=== PATIENT | male | born 1980 | race Caucasian/White ===

== ENCOUNTER 2021-09-05 09:29 | Emergency (ER) | payer OTHER, SELFPAY ==
--- NOTE | ~2021-09-05 | CT_ITS ---
EXAMINATION: CT ABDOMEN AND PELVIS WITHOUT CONTRAST CLINICAL INFORMATION: Pelvic pain, back pain COMPARISON: None TECHNIQUE: Multidetector volumetric imaging was performed from the superior aspect of the liver through the pubic symphysis. Sagittal and coronal reformatted images were obtained on the technologist's workstation. This CT examination was performed using dose optimization techniques as appropriate, variously including the following: *Automated exposure control *Adjustment of mA and/or kV according to patient size (this includes techniques or standardized protocols for targeted exams where dose is matched to indication/reason for exam; i.e. extremities or head) *Use of iterative reconstruction technique DLP: 710 mGy-cm FINDINGS: LUNG BASES: There is a 6 x 4 mm nodular opacity within the left upper lobe/lingula (image 7, series 4). Lung bases are otherwise clear. There are no pleural fluid collections. Imaged heart is unremarkable. LIVER, GALLBLADDER, AND BILIARY TREE: The liver is normal in size, though diffusely low in attenuation with compatible steatosis. There is regional sparing adjacent to the gallbladder fossa. No focal hepatic lesions are seen. There is no intra or extrahepatic duct dilation. The gallbladder is unremarkable with no evidence of radiopaque gallstones, gallbladder wall thickening, or obvious pericholecystic inflammatory changes. PANCREAS: Unremarkable. SPLEEN: Unremarkable. ADRENAL GLANDS: Unremarkable. KIDNEYS AND URETERS: The kidneys are normal in size, shape, and attenuation. No hydronephrosis, hydroureter, or calculi seen. No perinephric stranding. BLADDER: The bladder is essentially completely decompressed. There is a possible linear soft tissue structure extending 5 cm cranially from the anterior margin of the bladder which is best appreciated on sagittal images. The finding is indeterminate and could represent a collapsed portion of the bladder or a small urachal remnant. This could be further evaluated with ultrasound and full bladder. GASTROINTESTINAL TRACT: Distal esophagus and stomach are unremarkable. The small and large bowel are normal in course and caliber. There are no bowel wall inflammatory changes. There is a normal appendix. ABDOMINAL WALL: There is a fat-containing periumbilical hernia which measures 1.2 cm at the neck LYMPH NODES: Normal. VASCULAR: Unremarkable. PELVIC VISCERA: The prostate and seminal vesicles are unremarkable. The left testicle is located in a relatively cranial position just beyond the superficial inguinal ring. Uncertain if less than fully distended or secondary to an exaggerated cremasteric reflex. OSSEOUS STRUCTURES: There is 4 to 5 mm retrolisthesis of L5 on S1 degenerative disc change and endplate degeneration. There are mild degenerative changes of the sacroiliac joints with osteophyte formation along the anterior margin of the left sacroiliac joint (image 557, series 4) CT/CT abdomen pelvis wo con IMPRESSION: There is a questionable linear soft tissue structure extending cranially from the anterior margin of the bladder, however this could be secondary to underdistention of the bladder. Further evaluation with ultrasound with a full bladder could be of benefit to exclude a urethral remnant. Relatively cranial position of the left testis. Uncertain if this represents a partially undescended testis versus exaggerated cremasteric reflex. Would correlate with scrotal exam findings. Degenerative disc disease L5-S1 with grade 1 retrolisthesis L5 on S1. 6 x 4 mm left lower upper lobe pulmonary nodule (average diameter 5 mm). According to the UPDATED 2017 Fleischner Society recommendations, the advised follow-up imaging for solid nodules < 6 mm is: LOW RISK PATIENT: No routine follow-up. HIGH RISK PATIENT: Optional CT at 12 months. Hepatic steatosis. Fleischner guidelines were followed.
--- NOTE | ~2021-09-05 | US_ITS ---
EXAMINATION: US SCROTUM CLINICAL INFORMATION: Bilateral testicular pain. COMPARISON: None TECHNIQUE: A sonogram of the scrotum was performed assessing cuevas-scale appearance and color Doppler flow. Spectral Doppler analysis of the arterial and venous flow were performed in the testes bilaterally. FINDINGS: RIGHT: Right testicle measures 3.7 x 2.1 x 3.8 cm, volume 15.5 mL. No focal testicular parenchymal lesions are visualized. Spectral Doppler analysis of the arterial and venous flow is normal in the right testis. Right epididymal head is normal in size. No right hydrocele or varicocele is seen. Right epididymal Doppler flow is normal. LEFT: Left testicle measures 3.3 x 2.3 x 3.1 cm, volume 12.6 mL. No focal testicular parenchymal lesions are visualized. Spectral Doppler analysis of the arterial and venous flow is normal in the left testis. Left epididymal head is normal in size. No left varicocele is seen. Small left-sided hydrocele. Left epididymal Doppler flow is normal. US/US scrotum doppler IMPRESSION: 1. Bilateral testicular vascular flow visualized. 2. Small left-sided hydrocele.
--- NOTE | ~2021-09-05 | US_ITS ---
EXAMINATION: US SCROTUM CLINICAL INFORMATION: Bilateral testicular pain. COMPARISON: None TECHNIQUE: A sonogram of the scrotum was performed assessing cuevas-scale appearance and color Doppler flow. Spectral Doppler analysis of the arterial and venous flow were performed in the testes bilaterally. FINDINGS: RIGHT: Right testicle measures 3.7 x 2.1 x 3.8 cm, volume 15.5 mL. No focal testicular parenchymal lesions are visualized. Spectral Doppler analysis of the arterial and venous flow is normal in the right testis. Right epididymal head is normal in size. No right hydrocele or varicocele is seen. Right epididymal Doppler flow is normal. LEFT: Left testicle measures 3.3 x 2.3 x 3.1 cm, volume 12.6 mL. No focal testicular parenchymal lesions are visualized. Spectral Doppler analysis of the arterial and venous flow is normal in the left testis. Left epididymal head is normal in size. No left varicocele is seen. Small left-sided hydrocele. Left epididymal Doppler flow is normal. US/US scrotum IMPRESSION: 1. Bilateral testicular vascular flow visualized. 2. Small left-sided hydrocele.
[2021-09-05 09:48] VITALS: BP 144/83; PULSE 96; RESP 18; TEMP 36.6; O2SAT 99; BMI 26.6
--- NOTE | 2021-09-05 10:04 | ED.MALEGU ---
HPI - Male Genitourinary General Chief complaint: Urogenital-Male Stated complaint: groin pain,backpain Time Seen by Provider: 09/05/21 10:04 Source: patient Mode of arrival: ambulatory Limitations: no limitations History of Present Illness Complaint: other (pelvic pain, groin pain, back pain) Onset (ago): day(s) (3) Duration: intermittent Location: right inguinal region and abdomen (pelvic area, low back) Severity: moderate Quality: aching and dull Exacerbating factors: movement Context: other (unsure did have intercourse with ) Associated symptoms: Reports nausea/vomiting and other (malaise not feeling well) Related Data Allergies Allergy/AdvReac Type Severity Reaction Status Date / Time seafood Allergy Vomiting Verified 09/05/21 09:48 Review of Systems Review of Systems: Constitutional : No Weight loss, No Fever, No Chills, No Fatigue, No Malaise ENT/Mouth : No sore throat, No Rhinorrhea Eyes: No Eye Pain, No Swelling, No Redness Cardiovascular : No Chest Pain, No SOB, No Dyspnea on Exertion, No Orthopnea, No Edema, No Palpitations Respiratory : No Cough, No Sputum, No Wheezing Gastrointestinal : pos Nausea, No Vomiting, No Diarrhea, No Constipation, pos abdominal Pain, No Hematochezia, No Melena Genitourinary : No Dysuria, No Urinary Frequency, No Hematuria, pos pelvic pain Musculoskeletal : No joint pain, No Myalgias, No Joint Swelling, pos back pain Skin : No Skin Lesions, No rash Neuro : No Weakness, No Numbness, No Dizziness, No Headache Psych : No Anxiety/Panic, No Depression Heme/Lymph: No Bruising, No Bleeding,No Lymphadenopathy Endocrine : No Polyuria, No Polydipsia All other systems reviewed and are negative [facility] Past Medical History Attestation statement: The following information was validated with the patient. Medical History No pertinent past medical history Social History Social History Patient Tobacco Use Status: Current everyday Tobacco user Use of substances other than those prescribed or required for medical reasons: Yes Substance Use Type: Marijuana Advance Directives: No Advance Directives Information Provided: No Physical Exam Vital Signs: Vital Signs: Last Vital Signs Temp 97.8 F 09/05/21 09:48 Pulse 67 09/05/21 12:30 Resp 16 09/05/21 12:30 BP 137/76 09/05/21 12:30 Pulse Ox 97 09/05/21 12:30 BMI result Body Mass Index 26.6 Appearance: Alert. Oriented X3. No acute distress. Eyes: Pupils equal, round and reactive to light. ENT: Pharynx normal. Neck: Normal inspection. Neck supple. CVS: Normal heart rate and rhythm. Pulses normal. Respiratory: No respiratory distress. Breath sounds normal. Abdomen: Soft and nontender. : no ttp on scrotum, R inguinal area small defect felt but easily reduced small hernia felt not protruding only present with loud cough, no prostate enlargement or ttp Skin: Skin warm and dry. Normal skin color. Normal skin turgor. Extremities: No lower extremity edema. No calf ttp Neuro: Oriented X 3. No motor deficit. No sensory deficit. Course Course Course Narrative: given CT scan will obtain US to r/o any testicular issues - signed out to Dr. Bella MDM - Male Genitourinary MDM Narrative Medical decision making narrative: 41 yo male with no sig PMH here with vague complaints of pelvic pain low back pain nausea not feeling well - no enlarged prostate exam, very small inguinal hernia that is only present with cough no signs of incarceration and his abdomen is benign. His prostate is not enlarged at this time. Will obtain basic labs, UA, FLU/COVID swab, IVF, IV toradol and CT scan for renal colic. Dispo per results and findings. Lab Data Result diagrams: 09/05/21 10:28 09/05/21 10:28 Labs: Lab Results 09/05/21 09/05/21 09/05/21 Range/Units 10:28 10:28 10:28 WBC 11.6 H (4.8-10.8) X10*3/uL RBC 5.24 (4.60-5.80) X10*6/uL Hgb 16.0 (14.0-18.0) g/dl Hct 47.2 (42.0-52.0) % MCV 90.1 (80.0-98.0) fL MCH 30.5 (27.0-33.0) pg MCHC 33.9 (31.0-36.0) g/dl RDW 13.5 (11.0-16.0) % Plt Count 320 (160-400) X10*3/uL MPV 9.8 (9.4-12.4) fL Immature Gran % (Auto) 0.4 (0.0-0.4) % Neut % (Auto) 76.8 H (45-73) % Lymph % (Auto) 16.3 L (20-40) % [place] % (Auto) 5.9 (2-11) % Eos % (Auto) 0.2 (0-4) % Baso % (Auto) 0.4 (0-2) % Lymph # (Auto) 1.9 (1.2-4.9) X10*3/uL [place] # (Auto) 0.7 (0.1-1.2) X10*3/uL Eos # (Auto) 0.0 (0.0-0.4) X10*3/uL Baso # (Auto) 0.1 (0.0-0.2) X10*3/uL Abs Immat Gran (auto) 0.05 H (0.00-0.03) X10*3/uL Absolute Neuts (auto) 8.9 H (2.0-8.3) x10*3/uL Absolute Nucleated RBC 0.000 (0.0-0.012) X10*3/uL Nucleated RBC % (auto) 0.0 (0.0-0.2) /100WBC Sodium 138 (135-145) mmol/L Potassium 4.2 (3.3-5.1) mmol/L Chloride 105 (96-108) mmol/L Carbon Dioxide 23 (22-29) mmol/L Anion Gap 14 (12-20) BUN 10 (9-16) mg/dL Creatinine 0.84 (0.5-1.4) mg/dL Estim Creat Clear Calc 136.9 Estimated GFR > 60 Random Glucose 119 H (60-115) mg/dL Calcium 9.8 (8.4-10.2) mg/dL Magnesium 1.9 (1.6-2.6) mg/dL Total Bilirubin 0.8 (0.0-1.0) mg/dL Direct Bilirubin 0.2 (0.0-0.5) mg/dL AST 26 (5-37) U/L ALT 44 H (0-40) U/L Alkaline Phosphatase 71 (39-117) U/L Total Protein 7.4 (6.5-8.0) g/dL Albumin 4.7 (3.5-5.0) g/dL Lipase 16 (8-78) U/L Urine Color YELLOW Urine Appearance CLEAR Urine pH 5.5 (5.0-8.0) Ur Specific [place] 1.025 (1.005-1.025) Urine Protein NEG (NEG-TRACE) MG/DL Urine Glucose (UA) NEG (NEG) MG/DL Urine Ketones >=80 (NEG) MG/DL Urine Blood TRACE (NEG) Urine Nitrite NEG (NEG) Ur Leukocyte Esterase NEG (NEG) Urine RBC 0-2 (0) /HPF Urine WBC 0-2 (0-4) /HPF Ur Squamous Epith Cells TRACE /LPF Calcium Oxalate Crystal TRACE /LPF Urine Bacteria NONE /LPF COVID-19 ([facility]) (Negative) COVID-19 Clin Com Influenza Type A (PCR) (Negative) Influenza Type B (PCR) (Negative) RSV RNA Qual (PCR) (Negative) SARS-CoV-2 RNA (RT-PCR) (Negative) 09/05/21 09/05/21 Range/Units 10:28 10:48 WBC (4.8-10.8) X10*3/uL RBC (4.60-5.80) X10*6/uL Hgb (14.0-18.0) g/dl Hct (42.0-52.0) % MCV (80.0-98.0) fL MCH (27.0-33.0) pg MCHC (31.0-36.0) g/dl RDW (11.0-16.0) % Plt Count (160-400) X10*3/uL MPV (9.4-12.4) fL Immature Gran % (Auto) (0.0-0.4) % Neut % (Auto) (45-73) % Lymph % (Auto) (20-40) % [place] % (Auto) (2-11) % Eos % (Auto) (0-4) % Baso % (Auto) (0-2) % Lymph # (Auto) (1.2-4.9) X10*3/uL [place] # (Auto) (0.1-1.2) X10*3/uL Eos # (Auto) (0.0-0.4) X10*3/uL Baso # (Auto) (0.0-0.2) X10*3/uL Abs Immat Gran (auto) (0.00-0.03) X10*3/uL Absolute Neuts (auto) (2.0-8.3) x10*3/uL Absolute Nucleated RBC (0.0-0.012) X10*3/uL Nucleated RBC % (auto) (0.0-0.2) /100WBC Sodium (135-145) mmol/L Potassium (3.3-5.1) mmol/L Chloride (96-108) mmol/L Carbon Dioxide (22-29) mmol/L Anion Gap (12-20) BUN (9-16) mg/dL Creatinine (0.5-1.4) mg/dL Estim Creat Clear Calc Estimated GFR Random Glucose (60-115) mg/dL Calcium (8.4-10.2) mg/dL Magnesium (1.6-2.6) mg/dL Total Bilirubin (0.0-1.0) mg/dL Direct Bilirubin (0.0-0.5) mg/dL AST (5-37) U/L ALT (0-40) U/L Alkaline Phosphatase (39-117) U/L Total Protein (6.5-8.0) g/dL Albumin (3.5-5.0) g/dL Lipase (8-78) U/L Urine Color Urine Appearance Urine pH (5.0-8.0) Ur Specific [place] (1.005-1.025) Urine Protein (NEG-TRACE) MG/DL Urine Glucose (UA) (NEG) MG/DL Urine Ketones (NEG) MG/DL Urine Blood (NEG) Urine Nitrite (NEG) Ur Leukocyte Esterase (NEG) Urine RBC (0) /HPF Urine WBC (0-4) /HPF Ur Squamous Epith Cells /LPF Calcium Oxalate Crystal /LPF Urine Bacteria /LPF COVID-19 ([facility]) Negative (Negative) COVID-19 Clin Com See Note Influenza Type A (PCR) NEGATIVE (Negative) Influenza Type B (PCR) NEGATIVE (Negative) RSV RNA Qual (PCR) NEGATIVE (Negative) SARS-CoV-2 RNA (RT-PCR) NEGATIVE (Negative) Discharge Plan Discharge Clinical Impression: Inguinal hernia Qualifiers: Obstruction and gangrene presence: without obstruction or gangrene Laterality: unilateral Recurrence: non-recurrent Qualified Code(s): K40.90 - Unilateral inguinal hernia, without obstruction or gangrene, not specified as recurrent Patient Disposition: Still a Patient
[2021-09-05] MEDS: 0.9 % Sodium Chloride 1,000 ML 999 ML IVCONT (10:36)
[2021-09-05] MEDS: ondansetron HCL 4 MG/2 ML VIAL IVPUSH (10:36)
[2021-09-05] MEDS: Ketorolac Tromethamine 15 MG/ML VIAL 30 MG IVPUSH (10:36)
[2021-09-05 10:38] LABS: MANUAL DIFF FLAG NO
[2021-09-05 10:39] VITALS: BP 150/2; PULSE 76; RESP 16; O2SAT 96
[2021-09-05 10:40] LABS: Basophils Absolute Auto 0.1 X10*3/uL (0.0-0.2); Basophils Percent Auto 0.4 % (0-2); Eosinophils Percent Auto 0.2 % (0-4); Hematocrit 47.2 % (42.0-52.0); Imm Gran Abs Auto 0.05 X10*3/uL (0.00-0.03); Imm Gran Pct Auto 0.4 % (0.0-0.4); Lymphocytes Absolute Auto 1.9 X10*3/uL (1.2-4.9); Lymphocytes Percent Auto 16.3 % (20-40); Mean Corpuscular HGB Conc 33.9 g/dl (31.0-36.0); Mean Corpuscular Hemoglobin 30.5 pg (27.0-33.0); Mean Corpuscular Volume 90.1 fL (80.0-98.0); Mean Platelet Volume 9.8 fL (9.4-12.4); Monocytes Absolute Auto 0.7 X10*3/uL (0.1-1.2); Monocytes Percent Auto 5.9 % (2-11); Neutrophils Absolute Auto 8.9 x10*3/uL (2.0-8.3); Neutrophils Percent Auto 76.8 % (45-73); Platelet Count 320 X10*3/uL (160-400); Red Blood Count 5.24 X10*6/uL (4.60-5.80); Red Cell Distribution Width 13.5 % (11.0-16.0); White Blood Count 11.6 X10*3/uL (4.8-10.8)
[2021-09-05 10:42] LABS: Appearance Urine CLEAR; Color Urine YELLOW; Glucose Urine UA NEG (NEG); Leukocyte Esterase Urine NEG (NEG); Nitrite Urine NEG (NEG); PH 5.5 (5.0-8.0); Specific Gravity - Urine 1.025 (1.005-1.025); UACC Culture Trigger NO; Urine Blood TRACE (NEG); Urine Ketones >=80 MG/DL (NEG); Urine Protein NEG (NEG-TRACE)
--- NOTE | 2021-09-05 10:42 | PC.NURSE ---
Pt reports right groin pain x 4-5 days and nausea starting on Saturday, worse after having sex with Saturday. Seen at urgent care. This content writer and Dr Hull to bedside for evaluation, rectal exam performed and small right sided inguinal hernia felt. Pt denies urinary sx. Also reports right low back pain. Skin pwd. Speech clear/appropriate. IV established and labs drawn/sent. Medicated as charted
[2021-09-05 10:56] LABS: Alanine Aminotransferase 44 U/L (0-40); Albumin Level 4.7 g/dL (3.5-5.0); Alkaline Phosphatase 71 U/L (39-117); Anion Gap 14 (12-20); Aspartate Amino Transferase 26 U/L (5-37); Bilirubin Direct 0.2 mg/dL (0.0-0.5); Bilirubin Total 0.8 mg/dL (0.0-1.0); Blood Urea Nitrogen 10 mg/dL (9-16); Calcium 9.8 mg/dL (8.4-10.2); Carbon Dioxide 23 mmol/L (22-29); Chloride 105 mmol/L (96-108); Creatinine Clr Calc Pharmacy 136.9; Estimated Glomerular Filt Rate > 60; Glucose Random 119 mg/dL (60-115); Lipase 16 U/L (8-78); Magnesium 1.9 mg/dL (1.6-2.6); Potassium 4.2 mmol/L (3.3-5.1); Sodium 138 mmol/L (135-145); Total Protein 7.4 g/dL (6.5-8.0)
[2021-09-05 11:01] LABS: COVID-19 Test Negative (Negative); IDNOW Serial# 16C4AD1C
[2021-09-05 11:11] LABS: Calcium Oxalate Crystals Urine TRACE /LPF; RBC Urine 0-2 /HPF (0); Squamous Epithelial Cell Urine TRACE /LPF; WBC Urine 0-2 /HPF (0-4)
[2021-09-05 11:44] LABS: Influenza A PCR NEGATIVE (Negative); Influenza B PCR NEGATIVE (Negative); Resp Syncy Virus RNA Qual PCR NEGATIVE (Negative); SARS COV2 PCR INHOUSE NEGATIVE (Negative)
[2021-09-05 12:30] VITALS: BP 137/76; PULSE 67; RESP 16; O2SAT 97
[2021-09-05 14:59] VITALS: BP 143/84; PULSE 73; RESP 18; TEMP 37.6; O2SAT 97
== END 2021-09-05 15:13 | disposition home or self-care (01) ==
PROVIDERS: Emergency Provider Emergency Medicine
DX: R10.31 Right lower quadrant pain (principal); D72.829 Elevated white blood cell count, unspecified; K40.90 Unilateral inguinal hernia, without obstruction or gangrene, not specified as recurrent; Z20.822 Contact with and (suspected) exposure to COVID-19
CPT/HCPCS: 0241U; 74176; 76870; 80048; 80076; 81001; 83690; 83735; 85025; 87635; 93975; 96361; 96374; 96375; 99284; J1885; J2405